=== PATIENT | male | born 1955 | race Caucasian/White ===

== ENCOUNTER 2018-04-03 20:16 | Emergency (ER) | payer MEDICAID ==
[~2018-04-03] VITALS: Ht 175.3 cm; Wt 93.0 kg
[2018-04-03 21:25] LABS: BASOPHILS % (AUTO) 0.4 % (0-1); EOSINOPHILS # (AUTO) 0.1 X10'3 (0-0.9); EOSINOPHILS % (AUTO) 1.1 % (0-6); HEMOGLOBIN 15.6 g/dl (14.0-17.9); LYMPHOCYTES # (AUTO) 2.7 X10'3 (1.1-4.8); LYMPHOCYTES % (AUTO) 34.7 % (21-51); MEAN CORPUSCULAR HEMOGLOBIN 30.9 PG (27.0-31.0); MEAN PLATELET VOLUME 6.4 FL (7.4-10.4); MONOCYTES # (AUTO) 0.5 X10'3 (0-0.9); MONOCYTES % (AUTO) 6.6 % (2-12); NEUTROPHILS # (AUTO) 4.4 X10'3 (1.8-7.7); NEUTROPHILS % (AUTO) 57.2 % (42-75); PLATELET COUNT 264 X10'3 (140-440); RED BLOOD COUNT 5.06 X10'6 (4.70-6.10); RED CELL DISTRIBUTION WIDTH 13.3 % (11.5-14.5); WHITE BLOOD COUNT 7.7 X10'3 (4.5-11.0)
[2018-04-03 21:37] LABS: ALANINE AMINOTRANSFERASE 43 U/L (12-78); ALBUMIN 4.1 G/DL (3.4-5.0); ALKALINE PHOSPHATASE 67 IU/L (46-116); ANION GAP 16 (8-16); ASPARTATE AMINO TRANSFERASE 29 U/L (10-37); BILIRUBIN,TOTAL 0.4 MG/DL (0.1-1.0); BLOOD UREA NITROGEN 12 MG/DL (7-18); BUN/CREATININE RATIO 13.6 (5.4-32.0); CALCIUM 8.8 MG/DL (8.5-10.1); CHLORIDE 106 MMOL/L (99-107); CREATININE 0.88 MG/DL (0.60-1.10); GLUCOSE 97 MG/DL (70-104); POTASSIUM 3.9 MMOL/L (3.5-5.1); SODIUM 143 MMOL/L (135-145); TOTAL CARBON DIOXIDE 21.4 MMOL/L (24-32); TOTAL PROTEIN 8.4 G/DL (6.4-8.2); eGFR 87 ML/MIN
[2018-04-03] MEDS ORDERED: TRAM50TA2 PO (22:13)
[2018-04-03] MEDS ORDERED: ATRIN INH (22:14)
[2018-04-03] MEDS ORDERED: TRAZ-218 PO (22:22)
[2018-04-03 22:24] LABS: URINE AMPHETAMINE SCREEN NEGATIVE (Neg); URINE BARBITUATE SCREEN NEGATIVE (Neg); URINE BENZODIAZEPINES SCREEN NEGATIVE (Neg); URINE CANNABINOID SCREEN NEGATIVE (Neg); URINE COCAINE SCREEN NEGATIVE (Neg); URINE METHADONE SCREEN NEGATIVE (Neg); URINE OPIATE SCREEN NEGATIVE (Neg); URINE PHENCYCLIDINE SCREEN NEGATIVE (Neg)
[2018-04-03] MEDS ORDERED: ipratropium 0.5 MG/2.5ML nebule IH PRN (22:40)
[2018-04-04] MEDS: traZODone 50mg tablet PO SCH ×2 (02:24→20:32)
[2018-04-04] MEDS: traMADol 50MG tablet PO PRN ×4 (02:24→21:04)
[2018-04-04] MEDS ORDERED: LOVA20TA2 PO (07:14)
[2018-04-04] MEDS ORDERED: CALC-1197 PO (07:14)
[2018-04-04] MEDS ORDERED: TIOT4MIS3 INH (07:14)
[2018-04-04] MEDS ORDERED: traMADol 50MG tablet PO PRN (07:50)
[2018-04-04] MEDS ORDERED: non-formulary drug (Ipratropium Bromide MDI* (Atrovent MDI*) 2 PUFFS) INH PRN (07:50)
[2018-04-04] MEDS ORDERED: atorvastatin 10mg tablet PO SCH (08:00)
[2018-04-04 19:04] LABS: CLARITY,URINE CLEAR (Clear); COLOR,URINE YELLOW (Yellow); GLUCOSE, URINE NEGATIVE (Neg); KETONES,URINE 15 mg/dl (Neg); LEUKOCYTE ESTERASE ,URINE TRACE (Neg); NITRITES, URINE NEGATIVE (Neg); OCCULT BLOOD,URINE NEGATIVE (Neg); PROTEIN,URINE NEGATIVE (Neg)
[2018-04-04 19:31] LABS: UA COLLECTION TYPE CLN CATCH MIDSTREAM
[2018-04-04 19:32] LABS: RBC,URINE 0-2 /HPF (0-2); SQUAMOUS EPITHELIAL CELL,UR MODERATE /LPF (FEW)
[2018-04-04 19:33] LABS: BACTERIA,URINE FEW /HPF (Neg); MUCUS STRANDS FEW /LPF (Neg)
[2018-04-04] MEDS ORDERED: traZODone 50mg tablet PO SCH (21:00)
[2018-04-04 21:55] VITALS: BP 175/93
== END 2018-04-04 21:30 ==
LOC: ER 20:16
DX: R45.851 Suicidal ideations (principal); M72.2 Plantar fascial fibromatosis
CPT/HCPCS: 36415; 80053; 80305; 80320; 81001; 84443; 85025; 94760; 99285

== ENCOUNTER 2022-09-06 14:19 | Emergency (ER) | payer MEDICARE, MEDICAID ==
[~2022-09-06] VITALS: Ht 175.3 cm; Wt 97.7 kg
[~2022-09-06 14:19] MED LIST: ATRIN INH; CALC-1215 PO; LOVA20TA2 PO; TIOT4MIS3 INH; TRAM50TA2 PO; TRAZ-251 PO
[2022-09-06 14:59] LABS: BASOPHILS % (AUTO) 0.5 % (0-1); EOSINOPHILS # (AUTO) 0.1 X10'3 (0-0.9); EOSINOPHILS % (AUTO) 1.9 % (0-6); HEMATOCRIT 41.3 % (42.0-52.0); HEMOGLOBIN 14.5 g/dl (14.0-17.9); LYMPHOCYTES # (AUTO) 1.5 X10'3 (1.1-4.8); MEAN CORPUSCULAR HEMOGLOBIN 32.2 PG (27.0-31.0); MEAN CORPUSCULAR HGB CONC 35.1 g/dL (33.0-36.5); MEAN CORPUSCULAR VOLUME 91.6 FL (78-98); MEAN PLATELET VOLUME 6.9 FL (7.4-10.4); MONOCYTES # (AUTO) 0.4 X10'3 (0-0.9); NEUTROPHILS # (AUTO) 3.4 X10'3 (1.8-7.7); NEUTROPHILS % (AUTO) 62.6 % (42-75); PLATELET COUNT 222 X10'3 (140-440); RED BLOOD COUNT 4.51 X10'6 (4.70-6.10); RED CELL DISTRIBUTION WIDTH 13.3 % (11.5-14.5); WHITE BLOOD COUNT 5.4 X10'3 (4.5-11.0)
[2022-09-06 15:04] LABS: ANION GAP 10 (8-16); BLOOD UREA NITROGEN 11 MG/DL (7-18); BUN/CREATININE RATIO 14.5 (10.0-20.0); CALCIUM 8.7 MG/DL (8.5-10.1); CHLORIDE 105 MMOL/L (99-107); CREATININE 0.76 MG/DL (0.60-1.10); GLUCOSE 101 MG/DL (70-104); SODIUM 138 MMOL/L (135-145); TOTAL CARBON DIOXIDE 22.7 MMOL/L (24-32); eGFR > 90 ML/MIN
[2022-09-06 15:05] LABS: ALANINE AMINOTRANSFERASE 36 U/L (12-78); ALBUMIN 3.8 G/DL (3.4-5.0); ALKALINE PHOSPHATASE 42 IU/L (46-116); BILIRUBIN,TOTAL 0.6 MG/DL (0.1-1.0); LIPASE 103 U/L (73-393); TOTAL PROTEIN 7.5 G/DL (6.4-8.2)
[2022-09-06 15:06] LABS: ASPARTATE AMINO TRANSFERASE 38 U/L (10-37); POTASSIUM 3.9 MMOL/L (3.5-5.1)
[2022-09-06 16:30] VITALS: BP 170/89
[2022-09-06 19:48] LABS: OCCULT BLOOD STOOL NEGATIVE (Neg)
== END 2022-09-06 18:06 | disposition home or self-care (01) ==
LOC: ER 14:20
DX: R19.7 Diarrhea, unspecified (principal); G89.29 Other chronic pain; M54.9 Dorsalgia, unspecified; Z79.899 Other long term (current) drug therapy
CPT/HCPCS: 36415; 80053; 82272; 83690; 85025; 99283

== ENCOUNTER 2023-08-16 18:10 | Emergency (ER) | payer MEDICARE, MEDICAID ==
[~2023-08-16] VITALS: Ht 175.3 cm; Wt 95.5 kg
[2023-08-16 18:40] VITALS: TEMP 97.9
[2023-08-16] MEDS ORDERED: TETanus/Pertussis (Acell)/Diphther VAC/PF (Tdap-Adult) 0.5ml syringe IMVAC ONE (18:50)
[2023-08-16] MEDS: HYDROcodone/acetaminophen 10/325mg tab PO ONE (19:38)
[2023-08-16] MEDS: ondansetron 4mg rapidly disintigrating tab PO ONE (19:38)
[2023-08-16] MEDS: LIDOcaine 1% W/epiNEPHrine 1:100,000 20ml vial IJ ONE (19:39)
[2023-08-16 22:38] VITALS: BP 150/86; PULSE 80; RESP 18; O2SAT 6
== END 2023-08-16 22:40 | disposition home or self-care (01) ==
LOC: ER 18:11
DX: S01.111A Laceration without foreign body of right eyelid and periocular area, initial encounter (principal); S80.01XA Contusion of right knee, initial encounter; S09.90XA Unspecified injury of head, initial encounter; E78.00 Pure hypercholesterolemia, unspecified; G89.29 Other chronic pain; M54.9 Dorsalgia, unspecified; W01.0XXA Fall on same level from slipping, tripping and stumbling without subsequent striking against object, initial encounter; Y93.01 Activity, walking, marching and hiking; Y92.480 Sidewalk as the place of occurrence of the external cause; Y99.8 Other external cause status
CPT/HCPCS: 12013; 70450; 71045; 73564; 99284; A6222; J3490; J7030; A4565; A6449

== ENCOUNTER 2025-01-23 14:15 | Outpatient (CLI) | payer MEDICARE, MEDICAID ==
--- NOTE | 2025-01-23 15:44 | RADIOLOGY REPORT ---
CLINICAL INDICATION: CHRONIC PAIN OF BOTH SHOULDER TECHNIQUE: Bilateral DI SHOULDER, COMPLETE (MIN 2 VWS), DI SHOULDER, COMPLETE (MIN 2 VWS) Comparison: DI SHOULDER, COMPLETE (MIN 2 VWS) on DOS: 01/23/25 FINDINGS/IMPRESSION: : There is no evidence of acute fracture or dislocation of the shoulder. Moderate degenerative changes of bilateral shoulders. Age indeterminate left lateral 3rd rib fracture. Recommend correlation with point tenderness.
== END 2025-01-23 23:59 | disposition home or self-care (01) ==
LOC: RAD 14:15
PROVIDERS: ATTEND Student in an Organized Health Care Education/Training Program
DX: S22.32XA Fracture of one rib, left side, initial encounter for closed fracture (principal); M19.011 Primary osteoarthritis, right shoulder; M25.511 Pain in right shoulder; M19.012 Primary osteoarthritis, left shoulder; X58.XXXA Exposure to other specified factors, initial encounter; Y93.89 Activity, other specified; Y92.89 Other specified places as the place of occurrence of the external cause; Y99.8 Other external cause status
CPT/HCPCS: 73030

== ENCOUNTER 2025-01-31 13:30 | Outpatient (CLI) | payer MEDICARE, MEDICAID ==
--- NOTE | 2025-01-31 14:45 | RADIOLOGY REPORT ---
Procedure: CT CT CHEST LOW DOSE Reason for study/Clinical History: HISTORY OF TOBACCO USE COMPARISON: None TECHNIQUE: Multidetector CT of the chest was performed from the lung apices to the upper abdomen without the use of intravenous contract. Axial, coronal and sagittal multiplanar reformats were performed. Radiation Dose Information: CT Dose: CTDI volume is 3.7 mGy. Dose-length product is 145.9 mGy*cm The dose indicators for CT are the volume Computed Tomography (CT) Dose Index (CTDIvol) and the Dose Length Product (DLP), and are measured in units of mGy and mGy-cm, respectively. These indicators are not patient dose, but values generated from the CT scanner acquisition factors. The report includes radiation exposure data for exposures received during this examination. FINDINGS: Lower neck: Normal thyroid. Lungs: COPD/emphysema. Right basilar subsegmental atelectasis. 0.5 cm nodule in the left upper lobe, image 134. Bilateral Benign Calcified granulomas. Heart/Vascular Structures: Normal heart size. No pericardial effusion. Lymph Nodes: No adenopathy Pleura: No pleural effusion or significant pneumothorax. Musculoskeletal: No acute osseous abnormality. Degenerative changes of the spine. Soft tissues: Normal. Upper abdomen: Limited portions of the upper abdomen are unremarkable. IMPRESSION: COPD/emphysema. 0.5 cm nodule in the left upper lobe. Lung-RADS. Category 2:. Continue annual screening with LDCT. (version 1.1 addition).
== END 2025-01-31 23:59 | disposition home or self-care (01) ==
LOC: RAD 13:30
PROVIDERS: ATTEND Student in an Organized Health Care Education/Training Program
DX: Z12.2 Encounter for screening for malignant neoplasm of respiratory organs (principal); R91.1 Solitary pulmonary nodule; J98.11 Atelectasis; J98.4 Other disorders of lung; M47.814 Spondylosis without myelopathy or radiculopathy, thoracic region; Z87.891 Personal history of nicotine dependence
CPT/HCPCS: 71271

== ENCOUNTER 2025-02-01 08:38 | Outpatient (CLI) | payer MEDICARE, MEDICAID ==
--- NOTE | 2025-02-01 11:39 | VASCULAR REPORT ---
ULTRASOUND AORTIC CLINICAL INDICATION: smoking history, AAA TECHNIQUE: Multiple sonographic images of the abdominal aorta were obtained. FINDINGS: Eval for AAA, history or tobacco use 20+ years, quit 10 years ago Risk Factors Smoking Duplex Results A/P Proximal Aorta 2.80cm 2.74cm Mid Aorta 1.76cm 1.90cm Distal Aorta 1.70cm 1.76cm Rt. Common Iliac 1.01cm 1.59cm Arterummon Iliac 1.45cm 1.39cm Artery Doppler Velocity Waveform Aorta Mid. 77.6 cm/sec CONCLUSION Imaging reveals a patent Abdominal Aorta. No evidence of significant stenosis and/or occlusion. No evidence of Abdominal Aortic Anuerysm visualized.
== END 2025-02-01 23:59 | disposition home or self-care (01) ==
LOC: VAS 08:38
PROVIDERS: ATTEND Student in an Organized Health Care Education/Training Program
DX: I71.40 Abdominal aortic aneurysm, without rupture, unspecified (principal); Z87.891 Personal history of nicotine dependence
CPT/HCPCS: 93978